=== PATIENT | male | born 1945 | race African-American/Black ===

== ENCOUNTER 2018-04-12 17:39 | Observation (INO) ==
[2018-04-12] MEDS ORDERED: SODIUM CHLORIDE 0.9% 1,000 ML IV STA (18:17)
[2018-04-12] MEDS ORDERED: ONDANSETRON 4 MG/2 ML VIAL IV STA (18:17)
[2018-04-12] MEDS ORDERED: PANTOPRAZOLE 40 MG VIAL IV STA (18:17)
[2018-04-12 18:59] LABS: Basophils % 0.3 % (0.0-0.8); Eosinophils # 0.6 10*3/uL (0.0-0.87); Eosinophils % 6.5 % (0.00-10.9); Hematocrit 27.7 VOL% (42.0-52.0); Immature Granulocytes % 0.4 %; Immature Granulocytes Absolute 0.04 #; Lymphocytes # 1.7 10*3/uL (1.4-4.0); Lymphocytes % 17.1 % (21.2-54.2); Mean Corpuscular HGB Conc 32.5 GM/DL (32-36); Mean Corpuscular Hemoglobin 29 PG (27-34); Mean Corpuscular Volume 87.7 FL (87-102); Monocytes # 1.2 10*3/uL (0.11-0.8); Monocytes % 11.8 % (1.7-12.7); Neutrophils # 6.3 10*3/uL (1.4-7.4); Neutrophils % 63.9 % (38.7-73.9); Platelet Count 448 T/CUMM (130-400); Red Blood Count 3.16 MC/CUMM (3.8-5.5); White Blood Count 9.9 T/CUMM (4-12)
[2018-04-12 19:20] LABS: Albumin 3.4 G/DL (3.4-5.0); Bilirubin,Total 1.7 MG/DL (0.2-1.0); Calcium 9.8 MG/DL (8.5-10.1); Osmolality,Calculated 283.4 MOS/KG (273-304); Potassium 4.1 MMOL/L (3.5-5.1); Total Protein 7.5 G/DL (6.4-8.3)
[2018-04-12 19:54] LABS: Apearance,Urine CLEAR (Clear); Bilirubin,Urine Negative (Negative); Blood, Urine Negative (Negative); Glucose,Urine (UA) Negative (Negative); Ketones,Urine Negative (Negative); Nitrite,Urine Negative (Negative); Protein,Urine Negative; RBC,Urine <1 /HPF (0-4); Squamous Epithelial Cell,Urine Occasional /HPF (0-10); Urine Color Yellow (Yellow); Urine Specific Gravity 1.023 (1.001-1.035); Urine Urobilinogen < 2.0 EU/DL (0.2-1.0); WBC,Urine 1 /HPF (0-6)
[2018-04-12] MEDS ORDERED: MORPHINE 4 MG/1 ML VIAL IV PRN (20:32)
[2018-04-12] MEDS ORDERED: ONDANSETRON 4 MG/2 ML VIAL IV PRN (20:32)
[2018-04-12] MEDS ORDERED: ACETAMINOPHEN 325 MG TABLET PO PRN (20:32)
[2018-04-13] MEDS: SODIUM CHLORIDE 0.9% 1,000 ML IV SCH ×2 (00:03→13:29)
[2018-04-13] MEDS: LATANOPROST 0.005% OPH SOLN 2.5 ML BOTTLE BOTH EYES SCH ×2 (01:09→20:57)
[2018-04-13] MEDS: BRIMONIDINE/TIMOLOL OPH SOLN 5 ML BOTTLE BOTH EYES SCH ×3 (01:09→20:57)
[2018-04-13 04:31] LABS: Basophils % 0.5 % (0.0-0.8); Eosinophils # 0.5 10*3/uL (0.0-0.87); Eosinophils % 6.7 % (0.00-10.9); Hematocrit 23.8 VOL% (42.0-52.0); Hemoglobin 7.7 GM/DL (14.0-18.0); Immature Granulocytes % 0.4 %; Immature Granulocytes Absolute 0.03 #; Lymphocytes # 1.4 10*3/uL (1.4-4.0); Lymphocytes % 18.1 % (21.2-54.2); Mean Corpuscular HGB Conc 32.4 GM/DL (32-36); Mean Corpuscular Hemoglobin 28 PG (27-34); Mean Corpuscular Volume 87.5 FL (87-102); Mean Platelet Volume 10.5 FL (9.6-12.0); Monocytes # 1.1 10*3/uL (0.11-0.8); Monocytes % 14.4 % (1.7-12.7); Neutrophils # 4.6 10*3/uL (1.4-7.4); Neutrophils % 59.9 % (38.7-73.9); Platelet Count 382 T/CUMM (130-400); Red Blood Count 2.72 MC/CUMM (3.8-5.5); Red Cell Distribution Width 12.8 % (9.3-17.3); White Blood Count 7.6 T/CUMM (4-12)
[2018-04-13 04:48] LABS: Albumin 2.7 G/DL (3.4-5.0); Bilirubin,Total 1.4 MG/DL (0.2-1.0); Calcium 9.2 MG/DL (8.5-10.1); Osmolality,Calculated 278.5 MOS/KG (273-304); Total Protein 6.8 G/DL (6.4-8.3)
[2018-04-13 09:32] LABS: PT Patient Result 10.5 SECS
[2018-04-13] MEDS ORDERED: DIAZEPAM 5 MG TABLET PO ONE (11:13)
[2018-04-13] MEDS: amLODIPine 5 MG TABLET PO SCH (13:24)
[2018-04-14] MEDS: SODIUM CHLORIDE 0.9% 1,000 ML IV SCH (05:30)
[2018-04-14 06:01] LABS: Basophils % 0.5 % (0.0-0.8); Eosinophils # 0.6 10*3/uL (0.0-0.87); Eosinophils % 7.3 % (0.00-10.9); Hematocrit 25.4 VOL% (42.0-52.0); Hemoglobin 8.2 GM/DL (14.0-18.0); Immature Granulocytes % 0.4 %; Immature Granulocytes Absolute 0.03 #; Lymphocytes # 1.5 10*3/uL (1.4-4.0); Lymphocytes % 17.8 % (21.2-54.2); Mean Corpuscular HGB Conc 32.3 GM/DL (32-36); Mean Corpuscular Hemoglobin 28 PG (27-34); Mean Corpuscular Volume 87.6 FL (87-102); Mean Platelet Volume 10.4 FL (9.6-12.0); Monocytes # 1.1 10*3/uL (0.11-0.8); Monocytes % 13.2 % (1.7-12.7); Neutrophils # 5.1 10*3/uL (1.4-7.4); Neutrophils % 60.8 % (38.7-73.9); Platelet Count 403 T/CUMM (130-400); White Blood Count 8.4 T/CUMM (4-12)
[2018-04-14 06:23] LABS: Albumin 2.9 G/DL (3.4-5.0); Bilirubin,Total 1.2 MG/DL (0.2-1.0); Calcium 9.2 MG/DL (8.5-10.1); Osmolality,Calculated 281.3 MOS/KG (273-304); Potassium 4.1 MMOL/L (3.5-5.1); Total Protein 7.3 G/DL (6.4-8.3)
[2018-04-14 06:24] LABS: % Iron Saturation 11.4 % (18-50); Ferritin 354.2 ng/ml (26-388)
[2018-04-14 08:51] LABS: Albumin (SPE) 3.6 G/DL (3.2-5.3); Albumin (SPE) Rel % 52.1 %; Alpha 1 (SPE) 0.3 G/DL (0.1-0.4); Alpha 1 (SPE) Rel % 4.6 %; Beta (SPE) Rel % 14.2 %; Gamma (SPE) 1.1 G/DL (0.7-1.7); Gamma (SPE) Rel % 15.1 %
[2018-04-14] MEDS: amLODIPine 5 MG TABLET PO SCH (08:52)
[2018-04-14] MEDS: BRIMONIDINE/TIMOLOL OPH SOLN 5 ML BOTTLE BOTH EYES SCH (08:53)
[2018-04-14 16:04] VITALS: BP 145/81
== END 2018-04-14 16:15 | disposition home or self-care (01) ==
LOC: N.EDINP 17:39 → N.ED 17:39 → N.4E 21:23
PROVIDERS: ADMIT Internal Medicine; ATTEND Internal Medicine

== ENCOUNTER 2018-04-19 11:36 | Inpatient (IN) ==
[2018-04-19] MEDS ORDERED: chlorproMAZINE INJ 25 MG in SODIUM CHLORIDE 0.9% 100 ML IV PRN (15:55)
[2018-04-19] MEDS ORDERED: TEMAZEPAM 7.5 MG CAPSULE PO PRN (15:55)
[2018-04-19] MEDS ORDERED: BENZTROPINE 2 MG/2 ML AMP IV PRN (15:55)
[2018-04-19] MEDS ORDERED: ALPRAZolam 0.25 MG TABLET PO PRN (15:55)
[2018-04-19] MEDS ORDERED: guaiFENesin 200 MG/10 ML UDCUP PO PRN (15:55)
[2018-04-19] MEDS ORDERED: MYLANTA/LIDO VISC 2:1 300 ML BOTTLE SWISH/SWAL PRN (15:55)
[2018-04-19] MEDS ORDERED: LOPERAMIDE 2 MG CAPSULE PO PRN ×2 (15:55)
[2018-04-19] MEDS ORDERED: ACETAMINOPHEN 325 MG TABLET PO PRN (15:55)
[2018-04-19] MEDS ORDERED: diphenhydrAMINE CAP 25 MG CAPSULE PO PRN (15:55)
[2018-04-19] MEDS ORDERED: ALUMINUM/MAGNES/SIMETH MAX STR 30 ML UDCUP PO PRN (15:55)
[2018-04-19] MEDS ORDERED: LACTULOSE 20 GM/30 ML UDCUP PO PRN (15:55)
[2018-04-19] MEDS ORDERED: MYLANTA/LIDO VISC 2:1 300 ML BOTTLE SWISH/SPIT PRN (15:55)
[2018-04-19] MEDS ORDERED: chlorproMAZINE 25 MG TABLET PO PRN (15:55)
[2018-04-19] MEDS ORDERED: chlorproMAZINE INJ 50 MG in SODIUM CHLORIDE 0.9% 100 ML IV PRN (15:55)
[2018-04-19] MEDS ORDERED: traMADol 50 MG TABLET PO PRN (15:55)
[2018-04-19] MEDS ORDERED: PROMETHAZINE INJ 25 MG in SODIUM CHLORIDE 0.9% 50 ML IV PRN (15:55)
[2018-04-19] MEDS ORDERED: MAGNESIUM HYDROXIDE SUSP 30 ML UDCUP PO PRN (15:55)
[2018-04-19] MEDS ORDERED: ONDANSETRON 4 MG/2 ML VIAL IV PRN (15:55)
[2018-04-19] MEDS ORDERED: FLUOROURACIL IV ONE (16:00)
[2018-04-19] MEDS: SODIUM CHLORIDE 0.9% IV SCH (17:35)
[2018-04-19] MEDS: FLUOROURACIL IV SCH (17:35)
[2018-04-20] MEDS ORDERED: ceFAZolin 1,000 MG in SYRINGE 1 EACH IV ONE (06:00)
[2018-04-20] MEDS ORDERED: BRIMONIDINE BOTH EYES SCH (09:00)
[2018-04-20] MEDS ORDERED: TIMOLOL BOTH EYES SCH (09:00)
[2018-04-20 09:59] LABS: Basophils % 0.1 % (0.0-0.8); Eosinophils # 0.1 10*3/uL (0.0-0.87); Eosinophils % 0.3 % (0.00-10.9); Hematocrit 25.7 VOL% (42.0-52.0); Hemoglobin 8.2 GM/DL (14.0-18.0); Immature Granulocytes % 0.5 %; Immature Granulocytes Absolute 0.09 #; Lymphocytes # 2.7 10*3/uL (1.4-4.0); Lymphocytes % 14.4 % (21.2-54.2); Mean Corpuscular HGB Conc 31.9 GM/DL (32-36); Mean Corpuscular Hemoglobin 28 PG (27-34); Mean Corpuscular Volume 86.2 FL (87-102); Mean Platelet Volume 10.7 FL (9.6-12.0); Monocytes # 1.6 10*3/uL (0.11-0.8); Monocytes % 8.6 % (1.7-12.7); Neutrophils % 76.1 % (38.7-73.9); Platelet Count 548 T/CUMM (130-400); Red Blood Count 2.98 MC/CUMM (3.8-5.5); Red Cell Distribution Width 13.4 % (9.3-17.3); White Blood Count 18.4 T/CUMM (4-12)
[2018-04-20] MEDS ORDERED: FAMOTIDINE 20 MG TABLET PO ONE (10:53)
[2018-04-20] MEDS ORDERED: HEPARIN 5,000 UNIT/1 ML VIAL ONE (13:14)
[2018-04-20] MEDS ORDERED: TISSUE ADHESIVE 1 EACH APPLICATOR TOP ONE (13:14)
[2018-04-20] MEDS ORDERED: BUPIVACAINE 0.5% 50 ML VIAL ONE (13:14)
[2018-04-20] MEDS ORDERED: LIDOCAINE 1%/EPI INJ 20 ML VIAL ONE (13:14)
[2018-04-20] MEDS ORDERED: PROPOFOL 200 MG/20 ML VIAL IV ONE (13:42)
[2018-04-20] MEDS ORDERED: fentaNYL 100 MCG/2 ML VIAL ONE (13:43)
[2018-04-20] MEDS ORDERED: ONDANSETRON 4 MG/2 ML VIAL ONE (13:43)
[2018-04-20] MEDS ORDERED: MIDAZOLAM 2 MG/2 ML VIAL ONE (13:43)
[2018-04-20] MEDS: PROMETHAZINE 25 MG TABLET PO SCH ×3 (16:29→20:18)
[2018-04-20] MEDS: amLODIPine 5 MG TABLET PO SCH ×2 (16:40→17:04)
[2018-04-20] MEDS: SODIUM CHLORIDE 0.9% IV SCH (19:33)
[2018-04-20] MEDS: FLUOROURACIL IV SCH (19:33)
[2018-04-20] MEDS ORDERED: LATANOPROST 0.005% OPH SOLN 2.5 ML BOTTLE BOTH EYES SCH (21:00)
[2018-04-21] MEDS: PROMETHAZINE 25 MG TABLET PO SCH ×3 (02:37→14:32)
[2018-04-21] MEDS: amLODIPine 5 MG TABLET PO SCH ×2 (08:47)
[2018-04-21 16:01] VITALS: BP 137/78
== END 2018-04-21 18:44 | disposition home or self-care (01) | DRG 829 ==
LOC: N.4E 14:54
PROVIDERS: ADMIT Specialist; ATTEND Specialist

== ENCOUNTER 2019-02-27 11:48 | Inpatient (IN) ==
[2019-02-27 13:55] LABS: Basophils % 0.3 % (0.0-0.8); Eosinophils # 0.3 10*3/uL (0.0-0.87); Eosinophils % 2.5 % (0.00-10.9); Hematocrit 31.5 VOL% (42.0-52.0); Hemoglobin 11.2 GM/DL (14.0-18.0); Immature Granulocytes % 0.5 %; Immature Granulocytes Absolute 0.05 #; Lymphocytes # 1.3 10*3/uL (1.4-4.0); Lymphocytes % 12.6 % (21.2-54.2); Mean Corpuscular HGB Conc 35.6 GM/DL (32-36); Mean Corpuscular Volume 88.5 FL (87-102); Mean Platelet Volume 10.8 FL (9.6-12.0); Monocytes % 13.6 % (1.7-12.7); Neutrophils % 70.5 % (38.7-73.9); Platelet Count 400 T/CUMM (130-400); Red Blood Count 3.56 MC/CUMM (3.8-5.5); Red Cell Distribution Width 15.3 % (9.3-17.3); White Blood Count 10.2 T/CUMM (4-12)
[2019-02-27] MEDS ORDERED: NICOTINE 21 MG/24 HR PATCH TRANSDERM PRN (14:04)
[2019-02-27] MEDS ORDERED: PROMETHAZINE 25 MG/1 ML VIAL IM PRN (14:04)
[2019-02-27 14:28] LABS: Bilirubin,Direct 12.23 MG/DL (0.0-0.20)
[2019-02-27 14:29] LABS: Calcium 10.1 MG/DL (8.5-10.1); Osmolality,Calculated 272.1 MOS/KG (273-304); Total Protein 8.4 G/DL (6.4-8.3)
[2019-02-27 14:33] LABS: Bilirubin,Indirect 2.5 MG/DL (0.0-1.0); Bilirubin,Total 14.7 MG/DL (0.2-1.0)
[2019-02-27 14:34] LABS: Bilirubin,Total 14.7 MG/DL (0.2-1.0)
[2019-02-27 15:05] LABS: INR 1.1; PT Patient Result 11.7 SECS (9.6-12.2)
[2019-02-27] MEDS: SODIUM CHLORIDE 0.9% 1,000 ML IV SCH (16:07)
[2019-02-28] MEDS: SODIUM CHLORIDE 0.9% 1,000 ML IV SCH ×3 (00:25→18:21)
[2019-02-28 05:32] LABS: Basophils # 0.1 10*3/uL (0.0-0.2); Basophils % 0.5 % (0.0-0.8); Eosinophils # 0.5 10*3/uL (0.0-0.87); Eosinophils % 4.8 % (0.00-10.9); Hematocrit 25.3 VOL% (42.0-52.0); Hemoglobin 9.2 GM/DL (14.0-18.0); Immature Granulocytes % 0.5 %; Immature Granulocytes Absolute 0.05 #; Lymphocytes % 9.3 % (21.2-54.2); Mean Corpuscular HGB Conc 36.4 GM/DL (32-36); Mean Corpuscular Volume 87.2 FL (87-102); Monocytes % 12.7 % (1.7-12.7); Neutrophils % 72.2 % (38.7-73.9); Platelet Count 385 T/CUMM (130-400); Red Cell Distribution Width 14.8 % (9.3-17.3); White Blood Count 10.6 T/CUMM (4-12)
[2019-02-28 05:55] LABS: Albumin 2.3 G/DL (3.4-5.0); Calcium 9.2 MG/DL (8.5-10.1); Osmolality,Calculated 278.5 MOS/KG (273-304); Total Protein 6.8 G/DL (6.4-8.3)
[2019-02-28 06:03] LABS: HDL Cholesterol < 10 MG/DL (40-60); Triglycerides 308 MG/DL (2-150); VLDL CHOLESTEROL 61.6 MG/DL
[2019-02-28 06:06] LABS: Bilirubin,Total 12.2 MG/DL (0.2-1.0)
[2019-02-28] MEDS: cefTRIAXone 1,000 MG in SYRINGE 1 EACH IV SCH (12:32)
[2019-03-01 05:57] LABS: INR 1.2; PT Patient Result 12.8 SECS (9.6-12.2)
[2019-03-01 06:06] LABS: Basophils % 0.3 % (0.0-0.8); Eosinophils # 0.3 10*3/uL (0.0-0.87); Eosinophils % 2.4 % (0.00-10.9); Hematocrit 26.4 VOL% (42.0-52.0); Hemoglobin 9.5 GM/DL (14.0-18.0); Immature Granulocytes % 0.5 %; Immature Granulocytes Absolute 0.05 #; Lymphocytes % 9.1 % (21.2-54.2); Mean Corpuscular Volume 87.1 FL (87-102); Mean Platelet Volume 11.1 FL (9.6-12.0); Monocytes % 12.9 % (1.7-12.7); Neutrophils % 74.8 % (38.7-73.9); Platelet Count 396 T/CUMM (130-400); Red Blood Count 3.03 MC/CUMM (3.8-5.5); White Blood Count 10.9 T/CUMM (4-12)
[2019-03-01 06:20] LABS: Albumin 2.4 G/DL (3.4-5.0); Calcium 9.2 MG/DL (8.5-10.1); Osmolality,Calculated 281.3 MOS/KG (273-304); Total Protein 6.9 G/DL (6.4-8.3)
[2019-03-01 06:30] LABS: Bilirubin,Total 13.1 MG/DL (0.2-1.0)
[2019-03-01] MEDS ORDERED: INDOMETHACIN SUPP 50 MG SUPP RECTAL ONE ×2 (08:00→10:30)
[2019-03-01] MEDS ORDERED: ESMOLOL 100 MG/10 ML VIAL IV ONE (09:00)
[2019-03-01] MEDS ORDERED: SUCCINYLCHOLINE 200 MG/10 ML VIAL ONE (09:00)
[2019-03-01] MEDS ORDERED: propofoL 200 MG/20 ML VIAL IV ONE (09:00)
[2019-03-01] MEDS ORDERED: LIDOCAINE 2% 5 ML VIAL ONE (09:00)
[2019-03-01] MEDS ORDERED: ONDANSETRON 4 MG/2 ML VIAL ONE (09:00)
[2019-03-01] MEDS: SODIUM CHLORIDE 0.9% 1,000 ML IV SCH ×2 (09:08→19:35)
[2019-03-01] MEDS: LACTATED RINGERS 1,000 ML IV SCH (09:54)
[2019-03-01] MEDS ORDERED: fentaNYL 100 MCG/2 ML VIAL ONE ×2 (10:23→11:37)
[2019-03-01] MEDS ORDERED: SIMETHICONE DROPS 40 MG/0.6 ML 30 ML BOTTLE ONE (10:29)
[2019-03-01] MEDS ORDERED: POTASSIUM CHLORIDE 20 MEQ TABLET PO PRN (11:31)
[2019-03-01] MEDS ORDERED: SEVOFLURANE 1 UNIT/15 MINUTE INH ONE (12:15)
[2019-03-01] MEDS: cefTRIAXone 1,000 MG in SYRINGE 1 EACH IV SCH (12:53)
[2019-03-01] MEDS: ONDANSETRON 4 MG/2 ML VIAL IV PRN (17:05)
[2019-03-01] MEDS: SIMETHICONE CHEW 125 MG TABLET PO PRN ×2 (17:36→21:09)
[2019-03-01] MEDS ORDERED: amLODIPine 5 MG TABLET PO ONE (20:35)
[2019-03-01] MEDS: POTASSIUM CHLORIDE RIDER 20 MEQ in PREMIX 1 EACH IV PRN ×2 (21:09→23:43)
[2019-03-01] MEDS: BRIMONIDINE/TIMOLOL OPH SOLN 5 ML BOTTLE BOTH EYES SCH (23:42)
[2019-03-02] MEDS: LATANOPROST 0.005% OPH SOLN 2.5 ML BOTTLE BOTH EYES SCH ×2 (03:04→20:39)
[2019-03-02] MEDS: ONDANSETRON 4 MG/2 ML VIAL IV PRN (03:30)
[2019-03-02] MEDS: MORPHINE 4 MG/1 ML VIAL IV PRN ×2 (03:34→21:02)
[2019-03-02] MEDS: SIMETHICONE CHEW 125 MG TABLET PO PRN ×3 (03:36→19:39)
[2019-03-02 06:38] LABS: Basophils % 0.1 % (0.0-0.8); Eosinophils % 0.2 % (0.00-10.9); Hematocrit 24.7 VOL% (42.0-52.0); Hemoglobin 8.9 GM/DL (14.0-18.0); Immature Granulocytes % 0.3 %; Immature Granulocytes Absolute 0.03 #; Lymphocytes # 0.6 10*3/uL (1.4-4.0); Lymphocytes % 6.4 % (21.2-54.2); Mean Corpuscular Volume 86.1 FL (87-102); Mean Platelet Volume 11.3 FL (9.6-12.0); Monocytes % 11.4 % (1.7-12.7); Neutrophils % 81.6 % (38.7-73.9); Platelet Count 399 T/CUMM (130-400); Red Blood Count 2.87 MC/CUMM (3.8-5.5); Red Cell Distribution Width 15.4 % (9.3-17.3); White Blood Count 9.5 T/CUMM (4-12)
[2019-03-02 07:12] LABS: Albumin 2.2 G/DL (3.4-5.0); Calcium 9.2 MG/DL (8.5-10.1); Osmolality,Calculated 280.3 MOS/KG (273-304); Total Protein 6.7 G/DL (6.4-8.3)
[2019-03-02 07:20] LABS: Bilirubin,Total 15.8 MG/DL (0.2-1.0)
[2019-03-02] MEDS: SODIUM CHLORIDE 0.9% 1,000 ML IV SCH ×2 (09:04→12:40)
[2019-03-02] MEDS: LACTATED RINGERS 1,000 ML IV SCH (09:11)
[2019-03-02] MEDS: BRIMONIDINE/TIMOLOL OPH SOLN 5 ML BOTTLE BOTH EYES SCH ×2 (10:24→20:39)
[2019-03-02] MEDS: amLODIPine 5 MG TABLET PO SCH (10:24)
[2019-03-02] MEDS: MAGNESIUM HYDROXIDE SUSP 30 ML UDCUP PO PRN ×2 (12:34→19:39)
[2019-03-02] MEDS: cefTRIAXone 1,000 MG in SYRINGE 1 EACH IV SCH (12:34)
[2019-03-02] MEDS ORDERED: FAMOTIDINE 20 MG/2 ML VIAL IV ONE (15:30)
[2019-03-02] MEDS ORDERED: GRANISETRON 1 MG/1 ML VIAL IV ONE (15:30)
[2019-03-02] MEDS ORDERED: DEXAMETHASONE 10 MG/1 ML VIAL IV ONE (15:30)
[2019-03-02] MEDS ORDERED: OXALIPLATIN 150 MG in DEXTROSE 5% 250 ML IV ONE (16:00)
[2019-03-02] MEDS ORDERED: amLODIPine 5 MG TABLET PO ONE (20:46)
[2019-03-03] MEDS: SODIUM CHLORIDE 0.9% 1,000 ML IV SCH (02:57)
[2019-03-03 03:45] LABS: Hematocrit 27.6 VOL% (42.0-52.0); Hemoglobin 9.9 GM/DL (14.0-18.0); Immature Granulocytes % 0.4 %; Immature Granulocytes Absolute 0.03 #; Lymphocytes # 0.7 10*3/uL (1.4-4.0); Lymphocytes % 8.2 % (21.2-54.2); Mean Corpuscular HGB Conc 35.9 GM/DL (32-36); Mean Corpuscular Volume 84.9 FL (87-102); Mean Platelet Volume 10.9 FL (9.6-12.0); Monocytes % 12.5 % (1.7-12.7); Neutrophils % 78.9 % (38.7-73.9); Platelet Count 501 T/CUMM (130-400); Red Blood Count 3.25 MC/CUMM (3.8-5.5); Red Cell Distribution Width 15.6 % (9.3-17.3); White Blood Count 8.5 T/CUMM (4-12)
[2019-03-03 04:08] LABS: Albumin 2.4 G/DL (3.4-5.0); Calcium 9.5 MG/DL (8.5-10.1); Osmolality,Calculated 285.3 MOS/KG (273-304); Total Protein 7.3 G/DL (6.4-8.3)
[2019-03-03 04:12] LABS: Bilirubin,Total 18.1 MG/DL (0.2-1.0)
[2019-03-03] MEDS: amLODIPine 5 MG TABLET PO SCH (08:17)
[2019-03-03] MEDS: BRIMONIDINE/TIMOLOL OPH SOLN 5 ML BOTTLE BOTH EYES SCH (08:25)
[2019-03-03] MEDS ORDERED: HEPARIN LOCK FLUSH 500 UNIT/5 ML SYRINGE IV ONE (12:40)
[2019-03-03 12:52] VITALS: BP 153/95
== END 2019-03-03 13:13 | disposition home health service (06) | DRG 445 ==
LOC: N.4E → SUATTDRO 12:55
PROVIDERS: ADMIT Internal Medicine; ATTEND Internal Medicine

== ENCOUNTER 2019-03-08 17:59 | Inpatient (IN) ==
[2019-03-08 18:20] LABS: Basophils # 0.1 10*3/uL (0.0-0.2); Basophils % 0.7 % (0.0-0.8); Eosinophils # 0.5 10*3/uL (0.0-0.87); Eosinophils % 3.1 % (0.00-10.9); Hematocrit 27.7 VOL% (42.0-52.0); Hemoglobin 10.4 GM/DL (14.0-18.0); Immature Granulocytes % 13.6 %; Immature Granulocytes Absolute 2.25 #; Lymphocytes # 1.8 10*3/uL (1.4-4.0); Lymphocytes % 10.8 % (21.2-54.2); Mean Corpuscular HGB Conc 37.5 GM/DL (32-36); Mean Corpuscular Volume 82.9 FL (87-102); Mean Platelet Volume 10.5 FL (9.6-12.0); Monocytes % 9.6 % (1.7-12.7); NRBC # 0.04 10*3/uL; Neutrophils % 62.2 % (38.7-73.9); Platelet Count 629 T/CUMM (130-400); Red Blood Count 3.34 MC/CUMM (3.8-5.5); Red Cell Distribution Width 17.1 % (9.3-17.3); White Blood Count 16.5 T/CUMM (4-12)
[2019-03-08] MEDS ORDERED: ALBUTEROL/IPRATROPIUM 3 ML NEB RESP TX STA (18:21)
[2019-03-08] MEDS ORDERED: ONDANSETRON 4 MG/2 ML VIAL IV STA (18:21)
[2019-03-08 18:31] LABS: INR 1.7; PT Patient Result 18.5 SECS (9.6-12.2)
[2019-03-08 18:40] LABS: Band Neutrophils 1 % (0-10); Eosinophils 4 % (0-10); Lymphocytes 19 % (20-55); Platelet Estimate Increased; Segmented Neutrophils 70 % (50-85); Total Cells Counted 100
[2019-03-08 18:41] LABS: Hypochromasia Slight; Microcytosis Slight; Polychromasia Slight; Target Cells Few
[2019-03-08 18:45] LABS: Amylase 73 U/L (25-115); Troponin I < 0.015 NG/ML (0.00-0.045)
[2019-03-08 18:54] LABS: Albumin 2.1 G/DL (3.4-5.0); Calcium 9.6 MG/DL (8.5-10.1); Osmolality,Calculated 278.7 MOS/KG (273-304); Total Protein 7.1 G/DL (6.4-8.3)
[2019-03-08 19:01] LABS: Bilirubin,Total 24.8 MG/DL (0.2-1.0)
[2019-03-08 21:27] LABS: Apearance,Urine CLEAR (Clear); Bilirubin,Urine Moderate mg/dL (Negative); Blood, Urine Small mg/dL (Negative); Glucose,Urine (UA) Negative (Negative); Ketones,Urine 5 mg/dL (Negative); Mucus,Urine Occasional /LPF (Occasional); Nitrite,Urine Negative (Negative); Protein,Urine 30 MG/DL; RBC,Urine <1 /HPF (0-4); Squamous Epithelial Cell,Urine Occasional /HPF (0-10); Urine Color Amber (Yellow); Urine Specific Gravity 1.014 (1.001-1.035); WBC,Urine 3 /HPF (0-6)
[2019-03-08] MEDS ORDERED: ONDANSETRON 4 MG/2 ML VIAL IV PRN (21:32)
[2019-03-08] MEDS ORDERED: MORPHINE 4 MG/1 ML VIAL IV PRN (21:32)
[2019-03-08] MEDS ORDERED: ALBUTEROL/IPRATROPIUM 3 ML NEB RESP TX PRN (21:33)
[2019-03-08] MEDS ORDERED: FUROSEMIDE 40 MG/4 ML VIAL IV ONE (21:33)
[2019-03-08] MEDS ORDERED: hydrALAZINE 20 MG/1 ML VIAL IV PRN (21:33)
[2019-03-08] MEDS ORDERED: BRIMONIDINE TIMOLOL BOTH EYES SCH (22:35)
[2019-03-08] MEDS: cefTRIAXone 1,000 MG in SYRINGE 1 EACH IV SCH (23:52)
[2019-03-08] MEDS: metroNIDAZOLE INJ 500 MG in PREMIX 1 EACH IV SCH (23:52)
[2019-03-09 05:35] LABS: Albumin 1.9 G/DL (3.4-5.0); Calcium 9.4 MG/DL (8.5-10.1); Osmolality,Calculated 282.4 MOS/KG (273-304); Total Protein 6.5 G/DL (6.4-8.3)
[2019-03-09 05:46] LABS: Bilirubin,Total 23.4 MG/DL (0.2-1.0)
[2019-03-09] MEDS ORDERED: FUROSEMIDE 40 MG/4 ML VIAL IV SCH (08:00)
[2019-03-09] MEDS: OMEGA 3 ACID ETHYL ESTERS 1 GM CAPSULE PO SCH (09:08)
[2019-03-09] MEDS: amLODIPine 5 MG TABLET PO SCH (09:08)
[2019-03-09] MEDS: metroNIDAZOLE INJ 500 MG in PREMIX 1 EACH IV SCH ×2 (09:14→22:51)
[2019-03-09] MEDS ORDERED: oxyCODONE IR 5 MG TABLET PO PRN (11:00)
[2019-03-09] MEDS: PHYTONADIONE 5 MG/5 ML ORAL.SYR PO SCH (14:05)
[2019-03-09] MEDS: METOCLOPRAMIDE 10 MG/10 ML UDCUP PO SCH (20:26)
[2019-03-09] MEDS ORDERED: LATANOPROST 0.005% OPH SOLN 2.5 ML BOTTLE BOTH EYES SCH (21:00)
[2019-03-09] MEDS: cefTRIAXone 1,000 MG in SYRINGE 1 EACH IV SCH (22:52)
[2019-03-10] MEDS: METOCLOPRAMIDE 10 MG/10 ML UDCUP PO SCH ×4 (09:55→21:09)
[2019-03-10] MEDS: OMEGA 3 ACID ETHYL ESTERS 1 GM CAPSULE PO SCH (09:56)
[2019-03-10] MEDS: PHYTONADIONE 5 MG/5 ML ORAL.SYR PO SCH (09:56)
[2019-03-10] MEDS: amLODIPine 5 MG TABLET PO SCH (09:56)
[2019-03-10] MEDS: metroNIDAZOLE INJ 500 MG in PREMIX 1 EACH IV SCH ×2 (09:57→21:14)
[2019-03-10 13:54] LABS: Basophils # 0.1 10*3/uL (0.0-0.2); Basophils % 0.4 % (0.0-0.8); Eosinophils # 0.2 10*3/uL (0.0-0.87); Eosinophils % 1.1 % (0.00-10.9); Hematocrit 23.6 VOL% (42.0-52.0); Hemoglobin 8.8 GM/DL (14.0-18.0); Immature Granulocytes % 11.7 %; Immature Granulocytes Absolute 1.92 #; Lymphocytes # 1.5 10*3/uL (1.4-4.0); Lymphocytes % 9.1 % (21.2-54.2); Mean Corpuscular HGB Conc 37.3 GM/DL (32-36); Mean Corpuscular Volume 82.8 FL (87-102); Mean Platelet Volume 10.7 FL (9.6-12.0); Monocytes % 9.8 % (1.7-12.7); NRBC # 0.03 10*3/uL; Neutrophils % 67.9 % (38.7-73.9); Platelet Count 615 T/CUMM (130-400); Red Blood Count 2.85 MC/CUMM (3.8-5.5); Red Cell Distribution Width 18.3 % (9.3-17.3); White Blood Count 16.5 T/CUMM (4-12)
[2019-03-10 14:11] LABS: Calcium 8.8 MG/DL (8.5-10.1); Osmolality,Calculated 277.8 MOS/KG (273-304)
[2019-03-10 14:25] LABS: Hypochromasia 2+; Lymphocytes 17 % (20-55); Metamyelocytes 3 %; Segmented Neutrophils 72 % (50-85); Target Cells 1+; Total Cells Counted 100
[2019-03-10 14:26] LABS: Atypical Lymphocytes 1+
[2019-03-10] MEDS: cefTRIAXone 1,000 MG in SYRINGE 1 EACH IV SCH (21:09)
[2019-03-11 06:18] LABS: Bilirubin,Direct 17.85 MG/DL (0.0-0.20)
[2019-03-11 06:27] LABS: Bilirubin,Indirect 6.6 MG/DL (0.0-1.0); Bilirubin,Total 24.4 MG/DL (0.2-1.0)
[2019-03-11] MEDS: PHYTONADIONE 5 MG/5 ML ORAL.SYR PO SCH (08:10)
[2019-03-11] MEDS: amLODIPine 5 MG TABLET PO SCH (08:10)
[2019-03-11] MEDS: METOCLOPRAMIDE 10 MG/10 ML UDCUP PO SCH ×2 (08:10→10:37)
[2019-03-11] MEDS: OMEGA 3 ACID ETHYL ESTERS 1 GM CAPSULE PO SCH (08:10)
[2019-03-11] MEDS: metroNIDAZOLE INJ 500 MG in PREMIX 1 EACH IV SCH (09:05)
[2019-03-11] MEDS ORDERED: HEPARIN LOCK FLUSH 500 UNIT/5 ML SYRINGE IV ONE (11:47)
[2019-03-11 12:07] VITALS: BP 121/83
== END 2019-03-11 12:30 | disposition home or self-care (01) | DRG 186 ==
LOC: N.ED 17:59 → N.EDINP 21:32 → SUATTDRO 21:32 → N.4E 23:05
PROVIDERS: ADMIT Internal Medicine Cardiovascular Disease; ATTEND Phlebology